=== PATIENT | female | born 1975 | race Caucasian/White ===

== ENCOUNTER 2016-11-25 12:15 | Emergency (ER) | payer OTHER, BC ==
[2016-11-25] MEDS ORDERED: KETOROLAC TROMETHAMINE 10 MG TAB PO ONE (12:20)
[2016-11-25 12:23] VITALS: BMI 27.6
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
[2016-11-25 12:24] VITALS: BP 132/80; PULSE 90; TEMP 97.1
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
== END 2016-11-25 13:35 | disposition home or self-care (01) ==
LOC: EDMC 12:15
DX: S29.019A Strain of muscle and tendon of unspecified wall of thorax, initial encounter (principal); S16.1XXA Strain of muscle, fascia and tendon at neck level, initial encounter; V43.52XA Car driver injured in collision with other type car in traffic accident, initial encounter
CPT/HCPCS: 72050; 72070; 99283; J3490